=== PATIENT | male | born 1980 | race Two or more races ===

== ENCOUNTER 2025-03-13 18:48 | Inpatient (IN) | payer MEDICARE, MEDICAID ==
[~2025-03-13] VITALS: Ht 170.2 cm; Wt 76.1 kg
[2025-03-13 20:07] LABS: Hematocrit 31.9 % (41.0-53.0); Hemoglobin 10.6 g/dL (13.5-17.5); Mean Corpuscular Hemoglobin 28.9 pg (28.0-32.0); Mean Corpuscular Volume 87.2 fL (80.0-100.0); Nucleated Red Blood Cells % 0.2 %
[2025-03-13] MEDS: SODIUM CHLORIDE 0.9% 1,000 ML IV ONE (20:56)
[2025-03-13] MEDS: THROMBIN (BOVINE) 5000 UNIT SOL VIAL TP ONE (21:03)
[2025-03-13] MEDS: LIDOCAINE W/ EPINEPHRINE 1% 20ML VIAL SC ONE (21:40)
--- NOTE | 2025-03-13 22:23 | ED.PDOC ---
History of Present Illness HPI Comments 45-year-old male presents with spouse for chief complaint of uncontrolled bleeding from right, upper gum area. Patient reports having 5x molars and several front teeth removed during most recent dental appointment on 03/10/2025 and having sudden and unprovoked onset of bleeding, earlier, this afternoon. Patient denies any recent trauma. He takes Eliquis, currently. Denies any lightheadedness, dizziness, weakness, or further acute symptoms. REVIEW OF SYSTEMS: General: No fever, no chills, HEENT: Right upper gum/mouth bleeding. No neck pain, no blurred vision Cardiac: No chest pain. No palpitations. Lungs: No shortness of breath, GI: No abdominal pain, no vomiting Musculoskeletal: No joint pain , no back pain Skin: No rash, no wound Neuro: No headache, no dizziness, no syncope PHYSICAL EXAM: General: Awake, alert and oriented. No acute distress. Skin: Skin in warm, dry and intact without rashes or lesions. HEENT: Bleeding from right, upper molar area. The head is normocephalic and atraumatic. Conjunctivae are clear without exudates or hemorrhage. Sclera is non-icteric. Neck: Normal range of motion. No JVD. Cardiac: Regular rate Respiratory: No signs of respiratory distress. No Stridor. Extremities: Upper and lower extremities are atraumatic in appearance without deformity. Neurological: The patient is awake, alert and oriented to person, place, and time with normal speech. Speech is clear. There is no facial asymmetry. Psychiatric: Appropriate mood and affect. Good judgement and insight. Chief Complaint: Tooth Pain Time Seen by MD: 20:40 Reviewed Notes: Nurses Notes, Medications, Allergies Allergies: Coded Allergies: NO KNOWN ALLERGIES (Unverified , 03/13/25) Information Source: Patient Mode of Arrival: Ambulatory Severity: Moderate Timing: Hours Duration: Since onset Prehospital treatment: None Past Medical History PAST MEDICAL HISTORY: ESRD Past Medical History (Other): Eliquis medication use Surgical History (Other): Left arm fistula Was a procedure done? Was a procedure done?: No Differential Dx Considerations may include: Differential diagnoses considered include but are not limited to gingivitis, dental trauma, pharyngitis, cellulitis, postop complication, other. X-Ray, Labs, Meds, VS Vital Signs Date Time Temp Pulse Resp B/P (MAP) Pulse Ox O2 Delivery O2 Flow Rate FiO2 03/13/25 22:00 75 23 111/70 (84) 99 03/13/25 20:58 Room Air* 0 21 03/13/25 20:58 98.5 66 23 115/68 (84) 99 98.5 03/13/25 20:52 71 16 87/60 (69) 96 03/13/25 18:49 97.3 80 19 94/70 99 97.3 Lab Test 03/14/25 01:00 03/13/25 19:41 Range/Units Hemoglobin 8.9 #L 10.6 L 13.5-17.5 g/dL Hematocrit 27.1 #L 31.9 L 41.0-53.0 % Prothrombin Time Pending Prothrombin Time INR Pending Activated Partial Thromboplast Time Pending Magnesium Level Pending Iron Level Pending Total Iron Binding Capacity Pending Percent Iron Saturation Pending White Blood Count 5.0 4.4-10.8 10^3/uL Red Blood Count 3.66 L 4.5-5.90 10^6/uL Mean Corpuscular Volume 87.2 80.0-100.0 fL Mean Corpuscular Hemoglobin 28.9 28.0-32.0 pg Mean Corpuscular Hemoglobin Concent 33.1 32.0-36.0 g/dL Red Cell Distribution Width 16.9 H 11.8-14.3 % Platelet Count 190 140-450 10^3/uL Mean Platelet Volume 7.2 6.9-10.8 fL Neutrophils (%) (Auto) 65.3 37.0-80.0 % Lymphocytes (%) (Auto) 19.3 10.0-50.0 % Monocytes (%) (Auto) 12.6 H 0.0-12.0 % Eosinophils (%) (Auto) 1.9 0.0-7.0 % Basophils (%) (Auto) 0.9 0.0-2.0 % Neutrophils # (Auto) 3.3 1.6-8.6 10 ^3/uL Lymphocytes # (Auto) 1.0 0.4-5.4 10 ^3/uL Monocytes # (Auto) 0.6 0-1.3 10 ^3/uL Eosinophils # (Auto) 0.1 0-0.8 10 ^3/uL Basophils # (Auto) 0 0-0.2 10 ^3/uL Nucleated Red Blood Cells 0.2 % Current Medications Medications (Trade) Dose Ordered Sig/Swati Route Start Time Stop Time Status Last Admin Sodium Chloride 1,000 ml @ 1,000 mls/hr Q1H ONCE IV 03/13/25 21:00 03/13/25 21:59 DC 03/13/25 20:56 Lidocaine/ Epinephrine 5 ml ONCE ONCE SC 03/13/25 21:15 03/13/25 21:16 DC 03/13/25 21:40 Time of 1ST Reevaluation: 22:12 Reevaluation 1ST: Unchanged Patient Education/Counseling: Need For Follow Up Family Education/Counseling: Need For Follow Up SEPSIS Sepsis Screen Date sepsis recognized/suspect: Mar 13, 2025 Time Sepsis recognized/suspect: 1848 Recent Procedure: No On Antibiotic Therapy: No Respiratory Rate >20: No Heart Rate >90: No Temp<36 C (96.8 F) or >38.3 C: No SBP <90 or MAP <65 mmHG: No New Acute Mental Status Change: No Is the patient on CPAP, BIPAP,: No Physician Orders Saline Lock (03/13/25 20:46) Admit (03/14/25 02:44) Allergies (03/14/25 02:44) Code Status (03/14/25 02:44) Complete Blood Count (03/14/25 02:44) Comprehensive Metabolic Panel (03/14/25 02:44) Npo (Nothing By Mouth) Diet (03/14/25 Breakfast) Condition: Fair (03/14/25 02:44) Stat Ekg For Chest Pain (03/14/25 02:44) Notify Md Of Changes From Base (03/14/25 02:44) Boat Rigger For 24 Hours (03/14/25 02:44) Emergency Dysrhythmia Protocol (03/14/25 02:44) Rhythm Strips Once Every Shift (03/14/25 02:44) Urinalysis (03/14/25 02:44) Drug Screen (03/14/25 02:44) PTPTT (03/14/25 02:44) Type And Screen (03/14/25 02:44) *Dr. Kemi Sheth -Da Naa (03/14/25 02:44) Iron Panel (03/14/25 02:44) Magnesium (03/14/25 02:44) Hydromorphone Injection (Dilaudid Inject (03/14/25 02:45) Vital Signs Date Time Temp Pulse Resp B/P (MAP) Pulse Ox O2 Delivery O2 Flow Rate FiO2 03/13/25 22:00 75 23 111/70 (84) 99 03/13/25 20:58 Room Air* 0 21 03/13/25 20:58 98.5 66 23 115/68 (84) 99 98.5 03/13/25 20:52 71 16 87/60 (69) 96 03/13/25 18:49 97.3 80 19 94/70 99 97.3 Laboratory Tests Test 03/13/25 19:41 White Blood Count 5.0 10^3/uL (4.4-10.8) Medications Medications Dose Ordered Sig/Swati Route Start Time Stop Time Status Last Admin Dose Admin Lidocaine/ Epinephrine 5 ml ONCE ONCE SC 03/13/25 21:15 03/13/25 21:16 DC 03/13/25 21:40 Sodium Chloride 1,000 ml @ 1,000 mls/hr Q1H ONCE IV 03/13/25 21:00 03/13/25 21:59 DC 03/13/25 20:56 Departure 1 Departure Time of Disposition: 01:52 Impression: Primary Impression: End stage renal disease on dialysis Additional Impression: Anemia Disposition: ADMITTED INPATIENT Condition: Stable Comments MDM: 45-year-old male with bleeding from gums after recent tooth extraction. Bleeding controlled in the emergency department however patient's hemoglobin dropped significantly. Patient due for dialysis this morning. Patient admitted to hospitalist service for further treatment, evaluation and monitoring. Extensive evaluation was performed in attempt to identify or rule out: (See differential diagnosis section) The following tests were ordered, and results were reviewed by me and discussed with patient: (See diagnostic results section) The following test were independently interpreted by me: CBC I reviewed and agreed with the following test results read by other providers: N/A I reviewed the following notes from the pt's past medical encounters: N/A Additional information was gathered from interviewing the following independent historians: Spouse at bedside Discussion of management or test interpretation with external physician/other qualified health home care manager: N/A Decision regarding hospitalization or escalation of hospital level of care: Risk and benefits of admission for further treatment of patient's condition was considered. Due to patient's current clinical condition, high risk of decline and poor outcome if discharged and need for further inpatient management and monitoring, patient will be admitted to the hospital. Critical Care Note Critical Care Time?: No Stability Stability form required: No Heart Score Heart Score: Heart Score Response (Comments) Value History N/A 0 EKG N/A 0 Age N/A 0 Risk Factors N/A 0 Troponin N/A 0 Total 0 I personally scribed for EUSEBIA DOYLE MD ([email or web address]) on 03/13/25 at 22:23. Electronically submitted by Aguila Reece ([email or web address]). EUSEBIA DOYLE MD Mar 13, 2025 22:23
[2025-03-14] VITALS (7 sets, daily range): BP systolic 102–114; BP diastolic 63–75; PULSE 67–120; RESP 16–20; TEMP 96.8–97.7; O2SAT 99–100
[2025-03-14 01:39] LABS: Hematocrit 27.1 % (41.0-53.0); Hemoglobin 8.9 g/dL (13.5-17.5)
[2025-03-14] MEDS ORDERED: HYDROmorphone HCL 2 MG/ML VL/or syr IV PRN (02:45)
--- NOTE | 2025-03-14 03:10 | DVHHPRES ---
History of Present Illness Resident Creating Document: RANDELL GU History of Present Illness Patient is a 45-year-old male with past medical history of ESRD on dialysis, liver disease (ascites), lupus, stroke, right calf DVT and BPH, presented to [facility] ED with complaint of uncontrolled bleeding from the right lower gum area. The patient reports having five molars and several front teeth extracted during a dental procedure on 03/10/2025. He experienced a sudden, unprovoked onset of bleeding earlier this afternoon, shortly after eating ice cream around 4 PM. He took aspirin last Friday for pain management. He denies any recent trauma, and reports no lightheadedness, dizziness, weakness, or other acute symptoms. The patient has a known history of right calf DVT and currently taking Eliquis. On evaluation in the ED, patient is afebrile, vitals are stable. Initial labs show significant normocytic anemia. The patient was placed NPO, started on Tranexamic acid and IV fluids. Patient is admitted for further evaluation and management. Past Medical History ESRD on dialysis, liver disease (ascites), lupus, stroke, right calf DVT, BPH Past Surgical History Tooth extraction Family History: None Smoke: No ALCOHOL: none Drugs: None Review of Systems Review of Systems Eyes: No Pain, No Vision change, No Conjunctivae inflammation, No Eyelid inflammation, No Other, No Redness ENT: No Ear pain, No Ear discharge, No Nose pain, No Nose discharge, No Nose congestion, Positive for mouth pain due to gum bleeding, Mouth swelling, No Throat pain, No Throat swelling, No Other Cardiovascular: No Chest Pain, No Palpitations, No Orthopnea, No Paroxysmal No Dyspnea, No Edema, No Lt Headedness, No Other Respiratory: No Cough, No Dry, No Shortness of breath, No SOB with exertion, No Wheezing, No Hemoptysis, No Pleuritic Pain, No Sputum, No Other Gastrointestinal: No Nausea, No Vomiting, No Abdominal Pain, No Diarrhea, No Constipation, No Melena, No Hematochezia, No Other Genitourinary: No Dysuria, No Frequency, No Incontinence, No Hematuria, No Retention, No Other Musculoskeletal: No other, No neck pain, No shoulder pain, No arm pain, No back pain, No hand pain, No leg pain, No foot pain Skin: No Rash, No Lesions, No Jaundice, No Bruising, No Other Allergies: Coded Allergies: NO KNOWN ALLERGIES (Unverified , 03/13/25) Exam Vital Signs Vital Signs Date Time Temp Pulse Resp B/P (MAP) Pulse Ox O2 Delivery O2 Flow Rate FiO2 03/13/25 22:00 75 23 111/70 (84) 99 03/13/25 20:58 Room Air* 0 21 03/13/25 20:58 98.5 98.5 Exam General Appearance: Cooperative. Well developed. Well nourished. NAD Head Exam: Normal inspection Neck Exam: Normal inspection. Non-tender. Normal alignment Pulmonary/Respiratory: Chest non-tender. Clear bilateral breath sounds, no crackles, no wheezing. Cardiovascular/Chest: Regular rate and rhythm. No murmurs. No JVD. Peripheral Pulses: 2+ Radial (R). 2+ Radial (L). 2+ Pedal (R). 2+ Pedal (L) Abdominal Exam: Normal bowel sounds. Soft. normal abdomen, no visible veins, Nontender. No hepatospenomegaly. No masses Ankle Exam: Negative ankle edema Lower extremities: Negative lower extremity edema Neuro/Mental Status: A&O x4. Coherent. Thoughts/Psych: Normal thought pattern. Appropriate mood and affect. Good judgement and insight Skin Exam: Normal inspection. Normal color. Warm. Dry Oral Exam: Active bleeding noted from the right lower gum area, status post recent dental extractions. Labs/Xrays Labs Test 03/14/25 01:00 03/13/25 19:41 Range/Units Hemoglobin 8.9 #L 13.5-17.5 g/dL Hematocrit 27.1 #L 41.0-53.0 % White Blood Count 5.0 4.4-10.8 10^3/uL Red Blood Count 3.66 L 4.5-5.90 10^6/uL Mean Corpuscular Volume 87.2 80.0-100.0 fL Mean Corpuscular Hemoglobin 28.9 28.0-32.0 pg Mean Corpuscular Hemoglobin Concent 33.1 32.0-36.0 g/dL Red Cell Distribution Width 16.9 H 11.8-14.3 % Platelet Count 190 140-450 10^3/uL Mean Platelet Volume 7.2 6.9-10.8 fL Neutrophils (%) (Auto) 65.3 37.0-80.0 % Lymphocytes (%) (Auto) 19.3 10.0-50.0 % Monocytes (%) (Auto) 12.6 H 0.0-12.0 % Eosinophils (%) (Auto) 1.9 0.0-7.0 % Basophils (%) (Auto) 0.9 0.0-2.0 % Neutrophils # (Auto) 3.3 1.6-8.6 10 ^3/uL Lymphocytes # (Auto) 1.0 0.4-5.4 10 ^3/uL Monocytes # (Auto) 0.6 0-1.3 10 ^3/uL Eosinophils # (Auto) 0.1 0-0.8 10 ^3/uL Basophils # (Auto) 0 0-0.2 10 ^3/uL Nucleated Red Blood Cells 0.2 % SEPSIS Sepsis Screen Date sepsis recognized/suspect: Mar 13, 2025 Time Sepsis recognized/suspect: 2099 Recent Procedure: No On Antibiotic Therapy: No Respiratory Rate >20: Yes Heart Rate >90: No Temp<36 C (96.8 F) or >38.3 C: No SBP <90 or MAP <65 mmHG: No New Acute Mental Status Change: No Is the patient on CPAP, BIPAP,: No Physician Orders Saline Lock (03/13/25 20:46) Admit (03/14/25 02:44) Allergies (03/14/25 02:44) Code Status (03/14/25 02:44) Complete Blood Count (03/14/25 02:44) Comprehensive Metabolic Panel (03/14/25 02:44) Npo (Nothing By Mouth) Diet (03/14/25 Breakfast) Condition: Fair (03/14/25 02:44) Stat Ekg For Chest Pain (03/14/25 02:44) Notify Md Of Changes From Base (03/14/25 02:44) Finisher [employer]ocks For 24 Hours (03/14/25 02:44) Emergency Dysrhythmia Protocol (03/14/25 02:44) Rhythm Strips Once Every Shift (03/14/25 02:44) Urinalysis (03/14/25 02:44) Drug Screen (03/14/25 02:44) PTPTT (03/14/25 02:44) Type And Screen (03/14/25 02:44) *Dr. [facility] -Da Naa (03/14/25 02:44) Iron Panel (03/14/25 02:44) Tranexamic Acid (Tranexamic Acid) (03/14/25 02:45) Magnesium (03/14/25 02:44) Hydromorphone Injection (Dilaudid Inject (03/14/25 02:45) Vital Signs Date Time Temp Pulse Resp B/P (MAP) Pulse Ox O2 Delivery O2 Flow Rate FiO2 03/13/25 22:00 75 23 111/70 (84) 99 03/13/25 20:58 Room Air* 0 21 03/13/25 20:58 98.5 66 23 115/68 (84) 99 98.5 03/13/25 20:52 71 16 87/60 (69) 96 Laboratory Tests Test 03/13/25 19:41 White Blood Count 5.0 10^3/uL (4.4-10.8) Medications Medications Dose Ordered Sig/Swati Route Start Time Stop Time Status Last Admin Dose Admin Lidocaine/ Epinephrine 5 ml ONCE ONCE SC 03/13/25 21:15 03/13/25 21:16 DC 03/13/25 21:40 5 ML Sodium Chloride 1,000 ml @ 1,000 mls/hr Q1H ONCE IV 03/13/25 21:00 03/13/25 21:59 DC 03/13/25 20:56 1,000 MLS/HR Assessment/Plan Assessment/Plan Blood loss anemia with active bleeding due to recent teeth extraction Normocytic anemia due to above NPO Hb: 10.6 > 8.9 > 8.9 Tranexamic acid 1,000 MG IV ONCE Thrombin 5,000 UNIT TP once pain management with Dilaudid 0.25 MG IV q6h prn IV NS 1,999 MLS/HR one ESRD on Dialysis (Friday, Friday, Friday) Nephrology consult Hypokalemia Potassium chl rider KCL IV q2h Diet: NPO Goals of care: Full code, discussed for >30 minutes on 03/14/25 Plan discussed with patient Plan discussed with Dr. Grant Plan discussed with: Patient My Orders Orders - RANDELL GU RESIDENT Procedure Category Date Status Time Admit ADMIT 03/14/25 Transmitted 02:44 Allergies ARNULFO 03/14/25 In Process 02:44 Code Status CODE 03/14/25 Transmitted 02:44 Complete Blood Count LAB 03/14/25 Logged 02:44 Comprehensive LAB 03/14/25 Logged Metabolic Panel 02:44 Npo (Nothing By DIET 03/14/25 Transmitted Mouth) Diet Breakfast Condition: Fair [facility] 03/14/25 In Process 02:44 Stat Ekg For Chest [facility] 03/14/25 In Process Pain 02:44 Notify Md Of Changes [facility] 03/14/25 In Process From Base 02:44 Finisher [employer] For [facility] 03/14/25 In Process 24 Hours 02:44 Emergency Dysrhythmia [facility] 03/14/25 In Process Protocol 02:44 Rhythm Strips Once [facility] 03/14/25 In Process Every Shift 02:44 Urinalysis LAB 03/14/25 Logged 02:44 Drug Screen LAB 03/14/25 Logged 02:44 PTPTT LAB 03/14/25 Logged 02:44 Type And Screen BBK 03/14/25 Logged 02:44 *Dr. [facility] -Da CONS 03/14/25 Transmitted Naa 02:44 Iron Panel LAB 03/14/25 Logged 02:44 Tranexamic Acid PHA 03/14/25 Logged (Tranexamic Acid) 02:45 Magnesium LAB 03/14/25 Logged 02:44 Hydromorphone PHA 03/14/25 Logged Injection (Dilaudid 02:45 Date of Service: Mar 14, 2025 Billing Provider: HIEN GRANT MD Common Visit Codes: 15573-TPROFRD INP/OBS CARE (HIGH) Secondary Visit Codes: [id number] CARE PLAN 30 MINUTES RANDELL GU RESIDENT Mar 14, 2025 03:10 MOISES MORRISSEY RESIDENT Mar 14, 2025 06:46
[2025-03-14] MEDS: TRANEXAMIC ACID 1,000 MG in SODIUM CHL 0.9% 100 ML IV ONE (03:14)
[2025-03-14 03:38] LABS: INR 1.07 (0.9-1.15); Partial Thromboplastin Time 23.4 SEC (24.5-34.5); Prothrombin Time 11.3 sec (9.3-11.8)
[2025-03-14 03:55] LABS: Hematocrit 26.5 % (41.0-53.0); Hemoglobin 8.9 g/dL (13.5-17.5); Mean Corpuscular Hemoglobin 29.2 pg (28.0-32.0); Mean Corpuscular Volume 87.0 fL (80.0-100.0); Nucleated Red Blood Cells % 0.0 %
[2025-03-14 03:56] LABS: Iron 41.0 ug/dL (65-175); Total Iron Binding Capacity 221.0 ug/dL (250-425)
[2025-03-14 04:07] LABS: Albumin 3.3 g/dL (3.2-4.8); Alkaline Phosphatase 91 U/L (46-116); Anion Gap 10 (5-15); BUN/Creatinine Ratio 8.6 (10.0-20.0); Carbon Dioxide 31 mmol/L (20-31); Chloride 100 mmol/L (98-107); Glucose 89 mg/dL (74-106); Sodium 141 mmol/L (136-145); Total Protein 6.9 g/dL (5.7-8.2)
[2025-03-14 04:13] LABS: Alanine Aminotransferase < 9 U/L (7-40); Bilirubin, Total 0.3 mg/dL (0.2-1.0); Blood Urea Nitrogen 54 mg/dL (9-23); Calcium 8.4 mg/dL (8.7-10.4); Potassium 3.3 mmol/L (3.5-5.1)
[2025-03-14] MEDS ORDERED: POTASSIUM CHL 20MEQ/100ML 100 ML IV SCH (05:00)
[2025-03-14 05:02] LABS: Urine Protein, UAD 2+ (Negative)
[2025-03-14 05:13] LABS: Amphetamine Screen, Urine Neg (NEGATIVE); Barbiturate Scree,Urine Neg (NEGATIVE); Benzodiazephine Screen, Urine Neg (NEGATIVE); Cannabinoid Screen, Urine Neg (NEGATIVE); Cocaine Screen, Urine Neg (NEGATIVE); Opiate Scree,Urine Neg (NEGATIVE); Phencyclidine Screen, Urine Neg (NEGATIVE)
[2025-03-14] MEDS ORDERED: MIDO10TA3 PO (06:08)
[2025-03-14] MEDS ORDERED: APIX5TAB PO (06:08)
[2025-03-14] MEDS ORDERED: HYDR-4491 PO (06:08)
[2025-03-14] MEDS ORDERED: SEVE800T8 PO (06:08)
[2025-03-14] MEDS: POTASSIUM CHL 20MEQ/100ML 100 ML IV ONE (09:42)
[2025-03-14] MEDS ORDERED: SODIUM CHL 0.9% 1000 ML BAG XX ONE (14:30)
--- NOTE | 2025-03-14 14:30 | DVHINCON2 ---
Date of service: Mar 14, [address] Saha. Reason for Consultation End-stage renal disease management History of Present Illness 45-year-old patient with significant history of end-stage renal disease on hemodialysis Friday, liver cirrhosis, ascites undergoing periodic paracentesis, systemic lupus, history of CVA, history of right calf DVT on Eliquis, BPH, who presents to the hospital after tooth extraction and bleeding on subsiding despite being off Eliquis for at least six days. The patient procedure was on March 30 patient has had also generalized weakness and denies any dizziness focal weakness or rectal bleed. Nephrology consulted for management of the end-stage renal disease. Past Medical History End-stage renal disease, systemic lupus, hypertension, liver cirrhosis Past Surgical History Tooth extraction. Allergies: Coded Allergies: NO KNOWN ALLERGIES (Unverified , 03/13/25) Home Meds Reported Medications Hydroxychloroquine Sulfate (PLAQUENIL) 200 Mg Tab, 1 TAB PO DAILY, #180 TAB 3 Refills 03/14/25 Sevelamer Carbonate (Renvela) 800 Mg Tab, 2 TAB PO TID, #540 TAB 3 Refills 03/14/25 Midodrine Hcl (Midodrine Hcl) 10 Mg Tab, 10 MG PO TID, TAB 03/14/25 Apixaban Base (ELIQUIS) 5 Mg Tab, 5 MG PO BID, TAB 03/14/25 Current Medications Current Medications Medications (Trade) Dose Ordered Sig/Swati Route PRN Reason Start Time Stop Time Status Last Admin Hydromorphone HCl (Dilaudid Injection) 0.25 mg Q6HPRN PRN IV SEVERE PAIN (7-10 PAIN SCALE) 03/14/25 02:45 Potassium Chloride 100 ml @ 50 mls/hr Q2H IV 03/14/25 05:00 03/14/25 05:52 DC Family History: Patient reports no known family medical history. Social History He denies smoking alcohol or drug abuse Review of Systems HEENT: Bleeding from the gums Neck no JVD Cardiovascular: Denies for chest pain denies orthopnea or PND Respiratory: Denies cough or shortness of breath Gastrointestinal: Denies for nausea vomiting Musculoskeletal: Denies myalgias Neurological: Denies focal weakness Dermatological: Denies any rash The rest of the review of systems were reviewed pertinent positives and pertinent negatives are as per HPI up to 12 points review of systems H&P Exam Vital Signs/I&O Vital Sign Date Time Temp Pulse Resp B/P (MAP) Pulse Ox O2 Delivery O2 Flow Rate FiO2 03/14/25 13:00 97.1 67 18 114/75 (88) 100 97.1 03/14/25 04:51 Room Air* 0 21 Intake and Output 03/13/25 03/14/25 19:00 07:00 Intake Total 1000 ml Balance 1000 ml Intake Oral 0 ml IV Total 1000 ml Physical Exam HEENT: Faint bleeding from the gum Pulmonary: Lungs are clear on auscultation bilaterally Cardiovascular S1-S2, no S3 or S4 Abdomen: Bowel sounds positive, soft no rebound tenderness Skin: No rash Neurological Alert, oriented, no focal weakness Dialysis access is uncomplicated Labs/Diagnostic Data Labs/Diagnostic Data Laboratory Tests Test 03/14/25 04:59 03/14/25 03:23 03/14/25 01:00 03/13/25 19:41 Range/Units Urine Color Light-yellow Yellow Urine Clarity Clear Clear Urine pH 7.5 5.0-9.0 Urine Specific Dickens 1.014 1.001-1.035 Urine Protein 2+ H Negative Urine Ketones Negative Negative Urine Blood 1+ H Negative /uL Urine Nitrite Negative Negative Urine Bilirubin Negative Negative Urine Urobilinogen Normal Negative mg/dL Urine Leukocyte Esterase Negative Negative /uL Urine RBC 5 0 - 3 /hpf Urine Microscopic WBC 1 0-3 /HPF Urine Squamous Epithelial Cells Few <5 /hpf Urine Bacteria None seen None Seen /hpf Urine Hyaline Casts Few 0 - 2 /lpf Urine Glucose Normal Normal mg/dL Urine Opiates Screen Neg NEGATIVE Urine Fentanyl Screen Neg NEGATIVE Urine Barbiturates Screen Neg NEGATIVE Urine Phencyclidine Screen Neg NEGATIVE Urine Amphetamines Screen Neg NEGATIVE Urine Benzodiazepines Screen Neg NEGATIVE Urine Cocaine Screen Neg NEGATIVE Urine Cannabinoids Screen Neg NEGATIVE White Blood Count 3.5 #L 5.0 4.4-10.8 10^3/uL Red Blood Count 3.04 L 3.66 L 4.5-5.90 10^6/uL Hemoglobin 8.9 L 8.9 #L 10.6 L 13.5-17.5 g/dL Hematocrit 26.5 L 27.1 #L 31.9 L 41.0-53.0 % Mean Corpuscular Volume 87.0 87.2 80.0-100.0 fL Mean Corpuscular Hemoglobin 29.2 28.9 28.0-32.0 pg Mean Corpuscular Hemoglobin Concent 33.5 33.1 32.0-36.0 g/dL Red Cell Distribution Width 17.1 H 16.9 H 11.8-14.3 % Platelet Count 157 190 140-450 10^3/uL Mean Platelet Volume 7.1 7.2 6.9-10.8 fL Neutrophils (%) (Auto) 67.0 65.3 37.0-80.0 % Lymphocytes (%) (Auto) 19.5 19.3 10.0-50.0 % Monocytes (%) (Auto) 11.6 12.6 H 0.0-12.0 % Eosinophils (%) (Auto) 1.2 1.9 0.0-7.0 % Basophils (%) (Auto) 0.7 0.9 0.0-2.0 % Neutrophils # (Auto) 2.4 3.3 1.6-8.6 10 ^3/uL Lymphocytes # (Auto) 0.7 1.0 0.4-5.4 10 ^3/uL Monocytes # (Auto) 0.4 0.6 0-1.3 10 ^3/uL Eosinophils # (Auto) 0 0.1 0-0.8 10 ^3/uL Basophils # (Auto) 0 0 0-0.2 10 ^3/uL Nucleated Red Blood Cells 0.0 0.2 % Sodium Level 141 136-145 mmol/L Potassium Level 3.3 L 3.5-5.1 mmol/L Chloride Level 100 98-107 mmol/L Carbon Dioxide Level 31 20-31 mmol/L Anion Gap 10 5-15 Blood Urea Nitrogen 54 H 9-23 mg/dL Creatinine 6.29 H 0.700-1.30 mg/dL Glomerular Filtration Rate Calc 10 >90 mL/min BUN/Creatinine Ratio 8.6 L 10.0-20.0 Serum Glucose 89 74-106 mg/dL Calcium Level 8.4 L 8.7-10.4 mg/dL Total Bilirubin 0.3 0.2-1.0 mg/dL Aspartate Amino Transferase (AST) 10 L 13-40 U/L Alanine Aminotransferase (ALT) < 9 7-40 U/L Alkaline Phosphatase 91 46-116 U/L Total Protein 6.9 5.7-8.2 g/dL Albumin 3.3 3.2-4.8 g/dL Prothrombin Time 11.3 9.3-11.8 sec Prothrombin Time INR 1.07 0.9-1.15 Activated Partial Thromboplast Time 23.4 L 24.5-34.5 SEC Magnesium Level 2.4 1.6-2.6 mg/dL Iron Level 41 L 65-175 ug/dL Total Iron Binding Capacity 221 L 250-425 ug/dL Percent Iron Saturation 18.6 L 20-55 % Assessment Assessment: 1. End-stage renal disease on hemodialysis Friday 2. Anemia of acute blood loss and end-stage renal disease 3. Hypokalemia 4. Liver cirrhosis 5. Secondary hyperparathyroidism 6. Hypertension 7. Coagulopathy secondary to liver cirrhosis 8. Oral bleed secondary to tooth extraction and coagulopathy Plan: Plan for HD today and Friday which should help with uremic bleeding Potassium has been replaced If bleeding worsens despite dialysis may use DDAVP Monitor H&H, transfuse as needed We will give CALE Fluid restriction less than 1 L per day Thank you very much for allowing us to participate in the care of this patient please contact if you have any questions. Plan discussed with: Patient, Spouse JOEL FOOTE MD Mar 14, 2025 14:30
--- NOTE | 2025-03-14 19:49 | DVHPNRES ---
Progress Note Date Seen: Mar 14, 2025 Resident Creating Document: PARK OSBORNE RESIDENT Has the PT tested + for MRSA If YES, has PT been informed?: No Medical Necessity Reason Pt with a Central, PICC or Fol: No Subjective Review of Systems Ion Schultz is a 45-year-old male with past medical history of ESRD on dialysis (MWF, [facility]), liver disease (ascites), lupus, stroke, right calf DVT (on Plavix) and BPH. The patient presented to [facility] ED with a chief complaint of 1 day of uncontrolled bleeding from the right lower gum area. 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 The patient was advised to held the plavix 6 days prior to the dental procedure and resumed the day after. The patient resumed the plavix 3 days after the dental procedure. He experienced a sudden, unprovoked onset of bleeding earlier this afternoon, shortly after eating ice cream around 4 PM. He took aspirin last Friday for pain management. He denies any recent trauma, and reports no lightheadedness, dizziness, weakness, or other acute symptoms. The patient has a known history of right calf DVT and currently taking Eliquis. On evaluation in the ED, patient is afebrile, vitals are stable. Initial labs show significant normocytic anemia. The patient was placed NPO, started on Tranexamic acid and IV fluids. Patient is admitted for further evaluation and management. Past Medical History ESRD on dialysis, liver disease (ascites), lupus, stroke, right calf DVT, BPH Past Surgical History: Tooth extraction Family History: None Smoke: No ALCOHOL: none Drugs: None Hospital course: On 03/14/25, the patient was examined and evaluated at bedside. VS, laboratories and chart were reviewed. The patient reports he is still bleeding, but less that before. Hb: is 8.9mg /dl, the patient received epoyetin. The patient received dialysis MWF, a social service consult was placed to arranged chair time. We will continue following up with this patient progress. Review of Systems Eyes: No Pain, No Vision change, No Conjunctivae inflammation, No Eyelid inflammation, No Other, No Redness ENT: Oral pain due to recent dental extractions. The bleeding has reduced. No Ear pain, No Ear discharge, No Nose pain, No Nose discharge, No Nose congestion, Cardiovascular: No Chest Pain, No Palpitations, No Orthopnea, No Paroxysmal No Dyspnea, No Edema, No Lt Headedness, No Other Respiratory: No Cough, No Dry, No Shortness of breath, No SOB with exertion, No Wheezing, No Hemoptysis, No Pleuritic Pain, No Sputum, No Other Gastrointestinal: No Nausea, No Vomiting, No Abdominal Pain, No Diarrhea, No Constipation, No Melena, No Hematochezia, No Other Genitourinary: No Dysuria, No Frequency, No Incontinence, No Hematuria, No Retention, No Other Musculoskeletal: No other, No neck pain, No shoulder pain, No arm pain, No back pain, No hand pain, No leg pain, No foot pain Skin: No Rash, No Lesions, No Jaundice, No Bruising, No Other Allergies: NO KNOWN ALLERGIES (Unverified , 03/13/25) Objective vital signs Vital Sign Date Time Temp Pulse Resp B/P (MAP) Pulse Ox O2 Delivery O2 Flow Rate FiO2 03/14/25 16:57 97.3 73 18 108/73 (85) 99 97.3 03/14/25 08:00 Room Air* 0 21 Total Intake and Output 03/13/25 03/13/25 03/14/25 14:59 22:59 06:59 Intake Total 1000 ml 0 ml Balance 1000 ml 0 ml medications Current Medications Medications Dose Ordered Sig/Swati Route Start Time Stop Time Status Last Admin Dose Admin Hydromorphone HCl 0.25 mg Q6HPRN PRN IV 03/14/25 02:45 Examination General Appearance: Cooperative. Well developed. Well nourished. NAD Head Exam: Normal inspection Oral Exam: Active bleeding noted from the right lower gum area, status post recent dental extractions. Multiples cavities. Neck Exam: Normal inspection. Non-tender. Normal alignment Pulmonary/Respiratory: Chest non-tender. Clear bilateral breath sounds, no crackles, no wheezing. Cardiovascular/Chest: Regular rate and rhythm. No murmurs. No JVD. Peripheral Pulses: 2+ Radial (R). 2+ Radial (L). 2+ Pedal (R). 2+ Pedal (L) Abdominal Exam: Normal bowel sounds. Soft. normal abdomen, no visible veins, Nontender. No hepatospenomegaly. No masses Ankle Exam: Negative ankle edema Lower extremities: Negative lower extremity edema Neuro/Mental Status: A&O x4. Coherent. Thoughts/Psych: Normal thought pattern. Appropriate mood and affect. Good judgement and insight Skin Exam: Normal inspection. Normal color. Warm. Dry Rectal exam: patient refused to had a rectal exam performed. laboratory and microbiology Laboratory Tests 03/14/25 03:23 Test 03/14/25 03:23 Range/Units Serum Glucose 89 74-106 mg/dL Problem List/Assessment/Plan Problem List/Assessment/Plan #Acute, severe oral bleeding post molar extraction. #Acute normocytic anemia due to blood loss. Hb:10.6 > 8.9 > 8.9 Tranexamic acid 1,000 MG IV ONCE Thrombin 5,000 UNIT TP once pain management with Dilaudid 0.25 MG IV q6h prn IV NS Epoyetin alpha 10,000U #1 #ESRD on Dialysis (Friday, Friday, Friday) Nephrology consult Social service for chair time. #Hypokalemia Potassium chl rider KCL IV replenished Repeat K and Magnesium Diet: NPO, move to clear liquid when the bleeding improves. DVT prophylaxis Goals of care discussed with the patient > 35 min. Discussed plan of care with Dr. Grant Code status: Full code PCP: Kelle S. Plan discussed with: Patient, the patient agrees with the plan. Plan discussed with: Patient My Orders My Orders Orders - PARK OSBORNE Procedure Category Date Status Time * [employer] Chief CONS 03/14/25 Transmitted Consult Clear Liq Diet DIET 03/14/25 Transmitted Dinner Date of Service: Mar 14, 2025 Billing Provider: HIEN GRANT MD Common Visit Codes: [id number] INP/OBS CARE(HIGH) PARK OSB[place]NE RESIDENT Mar 14, 2025 19:49
[2025-03-14] MEDS ORDERED: EPOETIN ALFA-EPBX 10,000 UNIT/1ML VIAL SC ONE (21:00)
[2025-03-15 01:00] VITALS: BP 106/67; PULSE 76; RESP 16; TEMP 97.5; O2SAT 100
[2025-03-15 05:00] VITALS: BP 104/68; PULSE 70; RESP 16; TEMP 98.3; O2SAT 100
[2025-03-15 06:36] LABS: Hematocrit 25.3 % (41.0-53.0); Hemoglobin 8.5 g/dL (13.5-17.5)
[2025-03-15 06:52] LABS: Potassium 3.9 mmol/L (3.5-5.1)
[2025-03-15 07:01] LABS: Magnesium 2.5 mg/dL (1.6-2.6)
[2025-03-15 08:00] VITALS: PULSE 66
--- NOTE | 2025-03-15 21:19 | DVHDSRES ---
Discharge Summary Date of Admission Resident Creating Document: PARK OSB[place]NE RESIDENT Mar 14, 2025 at 02:44 Date of Discharge: Mar 15, 2025 Admitting Diagnosis #Acute, severe oral bleeding post molar extraction. #Acute normocytic anemia due to blood loss. #ESRD on dialysis Wounds: Multiples oral teeth extractions present on admission. Labs/Diagnostic Data: Laboratory Results Test 03/15/25 06:06 03/14/25 04:59 03/14/25 03:23 03/14/25 01:00 Hemoglobin 8.5 g/dL (13.5-17.5) Hematocrit 25.3 % (41.0-53.0) Potassium Level 3.9 mmol/L (3.5-5.1) Magnesium Level 2.5 mg/dL (1.6-2.6) Urine Color Light-yellow (Yellow) Urine Clarity Clear (Clear) Urine pH 7.5 (5.0-9.0) Urine Specific Anderson 1.014 (1.001-1.035) Urine Protein 2+ (Negative) Urine Ketones Negative (Negative) Urine Blood 1+ /uL (Negative) Urine Nitrite Negative (Negative) Urine Bilirubin Negative (Negative) Urine Urobilinogen Normal mg/dL (Negative) Urine Leukocyte Esterase Negative /uL (Negative) Urine RBC 5 /hpf (0 - 3) Urine Microscopic WBC 1 /HPF (0-3) Urine Squamous Epithelial Cells Few /hpf (<5) Urine Bacteria None seen /hpf (None Seen) Urine Hyaline Casts Few /lpf (0 - 2) Urine Glucose Normal mg/dL (Normal) Urine Opiates Screen Neg (NEGATIVE) Urine Fentanyl Screen Neg (NEGATIVE) Urine Barbiturates Screen Neg (NEGATIVE) Urine Phencyclidine Screen Neg (NEGATIVE) Urine Amphetamines Screen Neg (NEGATIVE) Urine Benzodiazepines Screen Neg (NEGATIVE) Urine Cocaine Screen Neg (NEGATIVE) Urine Cannabinoids Screen Neg (NEGATIVE) White Blood Count 3.5 10^3/uL (4.4-10.8) Red Blood Count 3.04 10^6/uL (4.5-5.90) Mean Corpuscular Volume 87.0 fL (80.0-100.0) Mean Corpuscular Hemoglobin 29.2 pg (28.0-32.0) Mean Corpuscular Hemoglobin Concent 33.5 g/dL (32.0-36.0) Red Cell Distribution Width 17.1 % (11.8-14.3) Platelet Count 157 10^3/uL (140-450) Mean Platelet Volume 7.1 fL (6.9-10.8) Neutrophils (%) (Auto) 67.0 % (37.0-80.0) Lymphocytes (%) (Auto) 19.5 % (10.0-50.0) Monocytes (%) (Auto) 11.6 % (0.0-12.0) Eosinophils (%) (Auto) 1.2 % (0.0-7.0) Basophils (%) (Auto) 0.7 % (0.0-2.0) Neutrophils # (Auto) 2.4 10 ^3/uL (1.6-8.6) Lymphocytes # (Auto) 0.7 10 ^3/uL (0.4-5.4) Monocytes # (Auto) 0.4 10 ^3/uL (0-1.3) Eosinophils # (Auto) 0 10 ^3/uL (0-0.8) Basophils # (Auto) 0 10 ^3/uL (0-0.2) Nucleated Red Blood Cells 0.0 % Sodium Level 141 mmol/L (136-145) Chloride Level 100 mmol/L (98-107) Carbon Dioxide Level 31 mmol/L (20-31) Anion Gap 10 (5-15) Blood Urea Nitrogen 54 mg/dL (9-23) Creatinine 6.29 mg/dL (0.700-1.30) Glomerular Filtration Rate Calc 10 mL/min (>90) BUN/Creatinine Ratio 8.6 (10.0-20.0) Serum Glucose 89 mg/dL (74-106) Calcium Level 8.4 mg/dL (8.7-10.4) Total Bilirubin 0.3 mg/dL (0.2-1.0) Aspartate Amino Transferase (AST) 10 U/L (13-40) Alanine Aminotransferase (ALT) < 9 U/L (7-40) Alkaline Phosphatase 91 U/L (46-116) Total Protein 6.9 g/dL (5.7-8.2) Albumin 3.3 g/dL (3.2-4.8) Prothrombin Time 11.3 sec (9.3-11.8) Prothrombin Time INR 1.07 (0.9-1.15) Activated Partial Thromboplast Time 23.4 SEC (24.5-34.5) Iron Level 41 ug/dL (65-175) Total Iron Binding Capacity 221 ug/dL (250-425) Percent Iron Saturation 18.6 % (20-55) Other Laboratory Tests 03/15/25 06:06 03/14/25 03:23 Brief Hx & Hospital Course: Ion Schultz is a 45-year-old male with past medical history of ESRD on dialysis (MWF, [facility]), liver disease (ascites), lupus, stroke, right calf DVT (on Plavix) and BPH. The patient presented to [facility] ED with a chief complaint of 1 day of uncontrolled bleeding from the right lower gum area. 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 The patient was advised to held the plavix 6 days prior to the dental procedure and resumed the day after. The patient resumed the Plavix 3 days after the dental procedure. He experienced a sudden, unprovoked onset of bleeding earlier this afternoon, shortly after eating ice cream around 4 PM. He took aspirin last Friday for pain management. He denies any recent trauma, and reports no lightheadedness, dizziness, weakness, or other acute symptoms. The patient has a known history of right calf DVT and currently taking Eliquis. On evaluation in the ED, patient is afebrile, vitals are stable. Initial labs show significant normocytic anemia. The patient was placed NPO, started on Tranexamic acid and IV fluids. Patient is admitted for further evaluation and management. Past Medical History ESRD on dialysis, liver disease (ascites), lupus, stroke, right calf DVT, BPH Past Surgical History: Tooth extraction Family History: None Smoke: No ALCOHOL: none Drugs: None Hospital course: On 03/14/25, the patient was examined and evaluated at bedside. VS, laboratories and chart were reviewed. The patient reports he is still bleeding, but less that before. Hb: is 8.9mg /dl, the patient received epoyetin. The patient received dialysis MWF, a social service consult was placed to arranged chair time. We will continue following up with this patient progress. On 03/15/25, the patient was examined and evaluated at bedside. VS, laboratories and chart were reviewed. The patient bleeding has stopped. The patient received dialysis today 03/15/25 in the hospital. He reports he is feeling better today, no new complaints. Due to significant clinical improvement, the patient will be discharged home today. Review of Systems Eyes: No Pain, No Vision change, No Conjunctivae inflammation, No Eyelid inflammation, No Other, No Redness ENT: The gum bleeding has completely stopped No Ear pain, No Ear discharge, No Nose pain, No Nose discharge, No Nose congestion, Cardiovascular: No Chest Pain, No Palpitations, No Orthopnea, No Paroxysmal No Dyspnea, No Edema, No Lt Headedness, No Other Respiratory: No Cough, No Dry, No Shortness of breath, No SOB with exertion, No Wheezing, No Hemoptysis, No Pleuritic Pain, No Sputum, No Other Gastrointestinal: No Nausea, No Vomiting, No Abdominal Pain, No Diarrhea, No Constipation, No Melena, No Hematochezia, No Other Genitourinary: No Dysuria, No Frequency, No Incontinence, No Hematuria, No Retention, No Other Musculoskeletal: No other, No neck pain, No shoulder pain, No arm pain, No back pain, No hand pain, No leg pain, No foot pain Skin: No Rash, No Lesions, No Jaundice, No Bruising, No Other Allergies: NO KNOWN ALLERGIES (Unverified , 03/13/25) Physical exam. General Appearance: Cooperative. Well developed. Well nourished. NAD Head Exam: Normal inspection Oral Exam: No bleeding noted from the right lower gum area. Neck Exam: Normal inspection. Non-tender. Normal alignment Pulmonary/Respiratory: Chest non-tender. Clear bilateral breath sounds, no crackles, no wheezing. Cardiovascular/Chest: Regular rate and rhythm. No murmurs. No JVD. Peripheral Pulses: 2+ Radial (R). 2+ Radial (L). 2+ Pedal (R). 2+ Pedal (L) Abdominal Exam: Normal bowel sounds. Soft. normal abdomen, no visible veins, Nontender. No hepatospenomegaly. No masses Ankle Exam: Negative ankle edema Lower extremities: Negative lower extremity edema Neuro/Mental Status: A&O x4. Coherent. Thoughts/Psych: Normal thought pattern. Appropriate mood and affect. Good judgement and insight Skin Exam: Normal inspection. Normal color. Warm. Dry Rectal exam: patient refused to had a rectal exam performed. Consults/Reason for consult Sales And Merchandising Representative: ERSD Condition at Discharge: Stable Final Diagnosis/Problems List #Acute, severe oral bleeding post molar extraction. #Acute normocytic anemia due to blood loss. #ESRD on dialysis #Acute hypokalemia #Chronic Liver cirrhosis #Chronic Secondary hyperparathyroidism due to ERSD #Chronic Hypertensive heart disease with systolic /diastolic failure Discharge Disposition: Home SNF Discharge Will this Physician continue t: No Discharge Instruct/Medications Diet: Renal Activity: No Restrictions, As Tolerated Follow Up/Referral: F/U with PCP in one week. F/U with neprologist in one week F/U with Dentist withi one week Medications: Continue with home medications Scheduled Apixaban Base (Eliquis), 5 MG PO BID, (Reported) Hydroxychloroquine Sulfate (Plaquenil), 1 TAB PO DAILY, (Reported) Midodrine Hcl (Midodrine Hcl), 10 MG PO TID, (Reported) Sevelamer Carbonate (Renvela), 2 TAB PO TID, (Reported) Discharge Statement: "Patient was advised to return to the ER or call 911 if any headaches, dizziness, shortness of breath, chest pain, abdominal pain, bleeding, fevers, or worsening of medical condition. Patient was counseled about treatment plan, medications, possible side effects, patientverbalized understanding. All questions were answered to the best of my ability. This discharge took greater then 30 minutes in planning, reviewing documentation, counseling the patient, and discussing with other team members." Discharge Care Plan Instructions Take Rx medications, Notify MD of any issues, Keep list of meds w/ you, Do not drink ETOH/smoke, Call 911 in an emergency, F/U w/ PCP, Provide comfort measures, Educate on timing of meds ASSESSMENT ASSESSMENT Assessment #Acute, severe oral bleeding post molar extraction. #Acute normocytic anemia due to blood loss. #ESRD on dialysis #Acute hypokalemia #Chronic Liver cirrhosis #Chronic Secondary hyperparathyroidism due to ERSD #Chronic Hypertensive heart disease with systolic /diastolic failure Goals of care discussed with the patient > 35 min. Discussed plan of care with Dr. Grant Code status: Full code PCP: Dr. Nina Plan discussed with: Patient, the patient agrees with the discharge plan. Date of Service: Mar 15, 2025 Billing Provider: HIEN GRANT MD Common Visit Codes: [id number] DISCH DAY >30min PARK OSB[place]NE RESIDENT Mar 15, 2025 21:19
== END 2025-03-15 12:55 | disposition home or self-care (01) | DRG 919 ==
LOC: ER 18:48 → OVERFLOW 03-14 02:44 → TELE-EAST 03-14 04:50
PROVIDERS: ADMIT Internal Medicine; ATTEND Internal Medicine
DX: K91.841 Postprocedural hemorrhage of a digestive system organ or structure following other procedure (principal); N18.6 End stage renal disease; I13.2 Hypertensive heart and chronic kidney disease with heart failure and with stage 5 chronic kidney disease, or end stage renal disease; D68.4 Acquired coagulation factor deficiency; K74.60 Unspecified cirrhosis of liver; Z99.2 Dependence on renal dialysis; M32.9 Systemic lupus erythematosus, unspecified; D62 Acute posthemorrhagic anemia; N25.81 Secondary hyperparathyroidism of renal origin; I50.42 Chronic combined systolic (congestive) and diastolic (congestive) heart failure; E87.6 Hypokalemia; N40.0 Benign prostatic hyperplasia without lower urinary tract symptoms; Z86.718 Personal history of other venous thrombosis and embolism; Z86.73 Personal history of transient ischemic attack (TIA), and cerebral infarction without residual deficits; Z79.899 Other long term (current) drug therapy; Z79.01 Long term (current) use of anticoagulants
CPT/HCPCS: 36415; 80053; 80307; 81001; 83540; 83550; 83735; 84132; 85014; 85018; 85025; 85610; 85730; 86850; 86900; 86901; 90935; 96360; G0378; J3480